=== PATIENT | female | born 1995 | race Two or more races ===

== ENCOUNTER 2025-03-22 11:14 | Emergency (ER) | payer OTHER ==
[~2025-03-22] VITALS: Ht 160 cm; Wt 49.9 kg
[2025-03-22 12:26] VITALS: BP 114/77; O2SAT 100
[2025-03-22] MEDS ORDERED: FAMOtidine 10 MG/ML (4ML VIAL) IV PUSH ONE (13:15)
[2025-03-22] MEDS ORDERED: KETOROLAC TROMETHAMINE 30 MG VIAL IV ONE (13:15)
[2025-03-22] MEDS ORDERED: CEFTRIAXONE SODIUM 1,000 MG VIAL IV ONE (13:15)
[2025-03-22] MEDS ORDERED: TAMSULOSIN HCL 0.4 MG CAP PO ONE ×2 (13:15→13:23)
[2025-03-22] MEDS ORDERED: CEFTRIAXONE SODIUM 1,000 MG VIAL ONE (13:23)
[2025-03-22] MEDS ORDERED: KETOROLAC TROMETHAMINE 30 MG VIAL ONE (13:23)
[2025-03-22] MEDS ORDERED: FAMOTIDINE/PF 20 MG/2 ML VIAL ONE ×2 (13:24→13:29)
[2025-03-22 14:01] LABS: BASO % 0.2 % (0.1-1.2); EOS # 0.09 (0.04-0.54); EOS % 0.6 % (0.7-7.0); HEMATOCRIT 39.7 % (34.1-44.9); HEMOGLOBIN 12.8 g/dL (11.2-15.7); LYMPH # 1.44 (1.18-3.74); LYMPH % 10.4 % (19.3-53.1); MEAN CORPUSCULAR HEMOGLOBIN 28.5 pg (25.6-32.2); MONO # 0.71 (0.24-0.82); MONO % 5.1 % (4.7-12.5); NEUT # 11.57 (1.56-6.13); NEUT % 83.3 % (34.0-71.1); PLATELET COUNT 315 K/uL (163-369); RED BLOOD COUNT 4.49 M/uL (3.93-5.22); RED CELL DISTRIBUTION WIDTH 14.4 % (11.6-14.4)
[2025-03-22 14:02] LABS: URINE APPEARANCE Clear; URINE BILIRRUBIN Negative (NEGATIVE); URINE BLOOD Moderate; URINE COLOR Dark Yellow; URINE GLUCOSE Negative (NEGATIVE); URINE KETONE 15 (NEGATIVE); URINE LEUKOCYTE Negative; URINE NITRATE Negative; URINE PROTEIN Trace (NEGATIVE)
[2025-03-22 14:03] LABS: URINE BACTERIA 647.4 uL (0.0-1933); URINE EPITHELIAL CELLS 20.8 uL (0.0-38.8); URINE RBC 9.4 uL (0.0-20.8); URINE WBC 7.9 uL (0.0-23.2)
[2025-03-22 14:08] LABS: URINE CAST 0.29 uL (0.0-1.40)
[2025-03-22 14:24] LABS: ALBUMIN 4.7 gm/dL (3.4-5.0); BILIRUBIN TOTAL 0.62 mg/dL (0.3-1.2); CALCIUM 9.5 mg/dL (8.5-10.1); CREATININE SERUM 0.71 mg/dL (0.55-1.02); GFR 98.75; GLOBULINA 4.4 G/DL (2.4-3.5); POTASSIUM 4.09 mEq/L (3.5-5.1); TOTAL PROTEIN 9.1 gm/dL (6.4-8.2)
[2025-03-22 14:31] LABS: INR 0.97; PARTIAL THROMBOPLASTIN TIME 28.5 SECONDS (22.0-34.0); PROTHROMBIN TIME 10.6 SECONDS (9.0-11.5)
[2025-03-22] MEDS ORDERED: TRIAMCINOLONE A15 G1 (19:44)
[2025-03-22] MEDS ORDERED: ZOFRAN8 MG PO (20:10)
[2025-03-22] MEDS ORDERED: PEPCID40 MG PO (20:10)
[2025-03-22] MEDS ORDERED: LEVOFLOXACIN750 MG PO (20:10)
[2025-03-22] MEDS ORDERED: ONDANSETRON HCL 2 MG/ML VIAL IV ONE (20:15)
[2025-03-22] MEDS ORDERED: ONDANSETRON HCL 2 MG/ML VIAL ONE (20:19)
== END 2025-03-22 23:07 | disposition home or self-care (01) ==
LOC: ER 11:30
PROVIDERS: General Practice
DX: M54.89 Other dorsalgia (principal); N83.202 Unspecified ovarian cyst, left side; N83.201 Unspecified ovarian cyst, right side; N20.0 Calculus of kidney